=== PATIENT | male | born 1955 | race African-American/Black ===

== ENCOUNTER 2017-07-01 13:46 | Emergency (ER) | payer SELFPAY | END 2017-07-01 15:13 | disposition home or self-care (01) | LOC: D.ER 13:46 | DX: S91.332A Puncture wound without foreign body, left foot, initial encounter (principal); W45.0XXA Nail entering through skin, initial encounter; Y93.89 Activity, other specified; Y92.029 Unspecified place in mobile home as the place of occurrence of the external cause; I10 Essential (primary) hypertension ==